=== PATIENT | female | born 1935 | race Caucasian/White ===

== ENCOUNTER 2016-10-23 13:12 | Emergency (ER) | payer MEDICARE, OTHER ==
[~2016-10-23] VITALS: Ht 157.5 cm; Wt 62.1 kg
[~2016-10-23 13:12] MED LIST: ECOT325T5; METO25TA2; MOTR200T4; NITR0.4S; PLAV75TA2; PROZ20CA; TRAM50TA2 OR; TREXIMET; VITAMIN D AND C
[2016-10-23] MEDS ORDERED: PREG25CA (13:22)
[2016-10-23] MEDS ORDERED: MULTCAP11 PO (13:22)
[2016-10-23] MEDS ORDERED: TYLE325T5 PO (13:22)
[2016-10-23] MEDS ORDERED: VITA400C29 PO (13:22)
--- NOTE | 2016-10-23 14:33 | REP ---
Right lower extremity deep vein duplex ultrasound: Comparison is 04/11/2011. The deep veins demonstrate normal compression, normal Doppler color flow and normal Doppler waveforms with respiration and augmentation from the popliteal vein to the common femoral vein. Impression: There is no deep vein thrombus. There is a palpable superficial saphenous vein along the medial aspect of the extremity. Incidentally noted is a right inguinal lymph node. Signed by Bob Euceda MD 10/23/2016 02:25 P
[2016-10-23 15:47] VITALS: BP 138/69
== END 2016-10-23 15:49 | disposition home or self-care (01) ==
LOC: M ED 14:38
DX: I83.91 Asymptomatic varicose veins of right lower extremity (principal); I10 Essential (primary) hypertension; F33.9 Major depressive disorder, recurrent, unspecified; Z86.718 Personal history of other venous thrombosis and embolism; Z79.899 Other long term (current) drug therapy; Z91.040 Latex allergy status; Z88.2 Allergy status to sulfonamides; Z88.5 Allergy status to narcotic agent; Z88.8 Allergy status to other drugs, medicaments and biological substances

== ENCOUNTER → 2016-12-05 | Outpatient (REF) | payer MEDICARE, OTHER ==
[~2016-12-05] MED LIST changes: +MULTCAP11 PO; +PREG25CA; +TYLE325T5 PO; +VITA400C29 PO
== END ==
LOC: M SFHCWAGY 16:45
PROVIDERS: ATTEND Nurse Practitioner Family
DX: N39.3 Stress incontinence (female) (male) (principal)
CPT/HCPCS: 81002; 87086; G0463

== ENCOUNTER → 2016-12-06 | Outpatient (CLI) | payer MEDICARE, OTHER | LOC: M LAB 15:44 | PROVIDERS: ATTEND Dentist Oral and Maxillofacial Surgery | DX: M31.6 Other giant cell arteritis (principal); G50.1 Atypical facial pain ==

== ENCOUNTER → 2017-06-20 | Outpatient (REF) | payer MEDICARE, OTHER ==
[~2017-06-20] MED LIST changes: +VITA-110 PO; -VITA400C29 PO
== END ==
LOC: M LAB REF 14:54
PROVIDERS: ATTEND Radiology Practitioner Assistant
DX: N60.22 Fibroadenosis of left breast (principal)

== ENCOUNTER → 2017-12-22 | Outpatient (REF) | payer MEDICARE, OTHER | LOC: M SFHCLERA 12:25 | DX: R30.0 Dysuria (principal) | CPT/HCPCS: 87186 ==

== ENCOUNTER 2017-12-29 09:54 | Emergency (ER) | payer MEDICARE, OTHER ==
[2017-12-29] MEDS: NS 1,000 ML IV (10:45)
[2017-12-29 11:07] LABS: BASO % 0.7 % (0.0-1.0); EOS # 0.1 10^3/uL (0.0-0.50); HEMATOCRIT 39.8 % (36.0-47.0); HEMOGLOBIN 13.2 g/dl (12.0-15.5); IMMATURE GRANULOCYTE % 0.4 % (0-3.0); LYMPH # 1.8 10^3/uL (1.5-4.5); LYMPH % 31.8 % (24.0-44.0); MEAN CORPUSCULAR HEMOGLOBIN 31.3 pg (27.0-33.0); MEAN CORPUSCULAR HGB CONC 33.2 g/dl (32.0-36.5); MEAN CORPUSCULAR VOLUME 94.3 fl (80.0-96.0); MONO # 0.5 10^3/uL (0.0-0.8); MONO % 9.2 % (0.0-5.0); NEUTROPHILS # 3.1 10^3/uL (1.8-7.7); NEUTROPHILS % 55.9 % (36.0-66.0); PLATELET COUNT, AUTOMATED 277 10^3/uL (150-450); RED BLOOD COUNT 4.22 10^6/uL (4.00-5.40); RED CELL DISTRIBUTION WIDTH 12.8 % (11.5-14.5); WHITE BLOOD COUNT 5.5 10^3/uL (4.0-10.0)
[2017-12-29 11:12] LABS: APPEARANCE, URINE CLEAR (CLEAR); BACTERIA, URINE AUTO 1+ (NEGATIVE); BILIRUBIN, URINE AUTO NEGATIVE (NEGATIVE); BLOOD, URINE BLOOD NEGATIVE (NEGATIVE); COLOR, URINE YELLOW (YELLOW); GLUCOSE, URINE (UA) AUTO NEGATIVE (NEGATIVE); KETONE, URINE AUTO NEGATIVE (NEGATIVE); LEUKOCYTE ESTERASE, URINE AUTO NEGATIVE (NEGATIVE); MUCUS, URINE SMALL (NEGATIVE); NITRITE, URINE AUTO NEGATIVE (NEGATIVE); PROTEIN, URINE AUTO NEGATIVE (NEGATIVE); RBC, URINE AUTO 1 /HPF (0-3); SPECIFIC GRAVITY URINE AUTO 1.011 (1.002-1.035); SQUAMOUS EPITHELIAL CELL UR AU 0 /HPF (0-6); UROBILINOGEN, URINE AUTO 0.2 mg/dL (0.0-2.0); WBC, URINE AUTO 1 /HPF (0-3)
[2017-12-29 11:27] LABS: ALBUMIN 3.9 GM/DL (3.2-5.2); ALBUMIN/GLOBULIN RATIO 0.95 (1.00-1.93); ALKALINE PHOSPHATASE 99 U/L (45-117); ALT/SGPT 19 U/L (12-78); ANION GAP 7 MEQ/L (8-16); AST/SGOT 12 U/L (7-37); BILIRUBIN,DIRECT 0.1 MG/DL (0.0-0.2); BILIRUBIN,TOTAL 0.5 MG/DL (0.2-1.0); BLOOD UREA NITROGEN 15 MG/DL (7-18); CALCIUM LEVEL 8.7 MG/DL (8.8-10.2); CARBON DIOXIDE LEVEL 27 MEQ/L (21-32); CHLORIDE LEVEL 105 MEQ/L (98-107); CREATININE FOR GFR 0.96 MG/DL (0.55-1.30); GLOMERULAR FILTRATION RATE 59.2 (>32); GLUCOSE, FASTING 102 MG/DL (70-100); LIPASE 636 U/L (73-393); POTASSIUM SERUM 3.9 MEQ/L (3.5-5.1); SODIUM LEVEL 139 MEQ/L (136-145)
[2017-12-29] MEDS ORDERED: ISOVUE-370 76% 100ML VIAL (Q9967) As Ordered (11:58)
[2017-12-29] MEDS: LORazepam 2 MG/ML VIAL (J2060) IV (12:27)
[2017-12-29] MEDS: diphenhydrAMINE INJ 50MG/ML VIAL (J1200) IV (13:06)
== END 2017-12-29 14:15 | disposition home or self-care (01) ==
LOC: M ED 09:54
DX: F41.1 Generalized anxiety disorder (principal); R74.8 Abnormal levels of other serum enzymes; R53.83 Other fatigue; R10.9 Unspecified abdominal pain; F32.9 Major depressive disorder, single episode, unspecified; K21.9 Gastro-esophageal reflux disease without esophagitis; Z86.718 Personal history of other venous thrombosis and embolism; Z88.5 Allergy status to narcotic agent; Z88.8 Allergy status to other drugs, medicaments and biological substances; Z88.2 Allergy status to sulfonamides; Z91.040 Latex allergy status; Z79.899 Other long term (current) drug therapy
CPT/HCPCS: J1200

== ENCOUNTER → 2018-05-01 | Outpatient (REF) | payer MEDICARE, OTHER ==
[2018-05-01 15:55] LABS: C REACTIVE PROTEIN QUANTITATIV < 0.30 MG/DL (0.00-0.30)
[2018-05-01 15:55] LABS: RHEUMATOID FACTOR QUANT < 10.0 IU/ML (<15.0)
[2018-05-01 16:06] LABS: ERYTHROCYTE SEDIMENTATION RATE 23 mm/hr (0-30)
[2018-05-03 14:15] LABS: ANTINUCLEAR ANTIBODIES DIRECT Negative (Negative)
== END ==
LOC: M LABDRAW1 12:14
DX: M79.10 Myalgia, unspecified site (principal)
CPT/HCPCS: 86140

== ENCOUNTER → 2018-06-21 | Outpatient (CLI) | payer MEDICARE, OTHER ==
[~2018-06-21] MED LIST changes: +NITR100C2 PO; +PROZ10CA7 PO; +TRIL150T PO
--- NOTE | 2018-06-21 10:22 | REPMRS ---
Patient History The patient states she has not had a clinical breast exam in over a year. Patient is postmenopausal. Family history of unknown cancer in father, unknown cancer in paternal aunt, unknown cancer in paternal aunt. Benign stereotactic core biopsy of the left breast, 2016. Digital Woman Screen Mammo: June 21, 2018 - Exam #: [id number] Bilateral CC and MLO view(s) were taken. Technologist: Emmanuelle Posey, Technologist Prior study comparison: June 13, 2017, bilateral digital woman screen mammo, performed at [facility]. November 06, 2012, digital woman screen mammo performed at [facility]. November 07, 2011, digital woman screen mammo performed at [facility]. FINDINGS: There are scattered fibroglandular densities. There is a needle biopsy marker clip noted in the left breast. There has been no change in the appearance of the mammogram from the prior studies. There is a mild amount of scattered fibroglandular density which is fairly symmetric. There is no interval development of dominant mass, architectural distortion, or clustered microcalcification suggestive of malignancy. Assessment: BI-RADS/ACR category 2 mammogram. Benign finding(s). Recommendation Routine screening mammogram of both breasts in 1 year (for women over age 40). This patient's Lifetime Breast Cancer RIsk is estimated at 0.6 %. This mammogram was interpreted with the aid of an FDA-approved computer-aided dectection system. Electronically Signed By: Amarjit Kahn MD 06/21/18 [id number]
== END ==
LOC: M WHC 07:49
PROVIDERS: ATTEND Internal Medicine
DX: Z12.31 Encounter for screening mammogram for malignant neoplasm of breast (principal); Z78.0 Asymptomatic menopausal state

== ENCOUNTER 2018-11-18 17:02 | Emergency (ER) | payer MEDICARE, OTHER ==
[~2018-11-18] VITALS: Ht 157.5 cm; Wt 60.5 kg
[2018-11-18] MEDS ORDERED: MEMA1TAB PO (17:24)
[2018-11-18 18:25] LABS: BASO % 0.4 % (0.0-1.0); EOS # 0.2 10^3/uL (0.0-0.50); EOS % 2.9 % (0.0-3.0); HEMATOCRIT 35.6 % (36.0-47.0); HEMOGLOBIN 11.5 g/dl (12.0-15.5); LYMPH # 1.9 10^3/uL (1.5-4.5); MEAN CORPUSCULAR HGB CONC 32.3 g/dl (32.0-36.5); MONO # 0.6 10^3/uL (0.0-0.8); MONO % 8.3 % (0.0-5.0); NEUTROPHILS # 4.5 10^3/uL (1.8-7.7); NEUTROPHILS % 62.1 % (36.0-66.0); PLATELET COUNT, AUTOMATED 250 10^3/uL (150-450); RED BLOOD COUNT 3.71 10^6/uL (4.00-5.40); WHITE BLOOD COUNT 7.2 10^3/uL (4.0-10.0)
[2018-11-18 18:35] LABS: INR 1.03; PARTIAL THROMBOPLASTIN TIME 25.8 SECONDS (25.4-37.6); PROTHROMBIN TIME 13.6 SECONDS (12.1-14.4)
[2018-11-18 18:44] LABS: ALBUMIN 3.2 GM/DL (3.2-5.2); ALT/SGPT 22 U/L (12-78); BILIRUBIN,DIRECT < 0.1 MG/DL (0.0-0.2); BILIRUBIN,TOTAL 0.2 MG/DL (0.2-1.0); BLOOD UREA NITROGEN 22 MG/DL (7-18); CALCIUM LEVEL 8.3 MG/DL (8.8-10.2); CARBON DIOXIDE LEVEL 27 MEQ/L (21-32); CHLORIDE LEVEL 107 MEQ/L (98-107); CPK CREATINE PHOSPHOKINASE 118 U/L (26-192); CREATININE FOR GFR 0.95 MG/DL (0.55-1.30); FREE T4 0.74 NG/DL (0.76-1.46); GLOMERULAR FILTRATION RATE 59.8 (>32); GLUCOSE, FASTING 95 MG/DL (70-100); MB/CK RELATIVE INDEX 1.95 (< OR =4); POTASSIUM SERUM 4.2 MEQ/L (3.5-5.1); SODIUM LEVEL 141 MEQ/L (136-145); TOTAL PROTEIN 6.7 GM/DL (6.4-8.2); TROPONIN I < 0.02 NG/ML (< 0.10)
[2018-11-18 19:13] LABS: C REACTIVE PROTEIN QUANTITATIV 0.37 MG/DL (0.00-0.30)
--- NOTE | 2018-11-18 20:01 | REPVR ---
EXAM: CT Head Without Contrast EXAM DATE/TIME: 11/18/2018 7:00 PM CLINICAL HISTORY: 83 years old, female; Pain; Headache TECHNIQUE: Imaging protocol: Axial computed tomography images of the head without contrast. Radiation optimization: All CT scans at this facility use at least one of these dose optimization techniques: automated exposure control; mA and/or kV adjustment per patient size (includes targeted exams where dose is matched to clinical indication); or iterative reconstruction. COMPARISON: CT Head without contrast 12/12/2012 11:31 AM FINDINGS: Brain: No intracranial mass, mass effect or midline shift. No acute intracranial hemorrhage. No CT evidence of acute cortical infarct. Mild decreased attenuation in periventricular/centrum semiovale white matter. Ventricles: Ventricles, cisterns, and sulci are normal in size for age. Bones/joints: No calvarial fracture or destructive process. Sinuses: Imaged paranasal sinuses are clear. Mastoid air cells: Mastoid air cells are normally aerated. Orbits: Imaged orbits are unremarkable. Soft tissues: No focal extracranial soft tissue swelling. IMPRESSION: No acute or concerning focal intracranial abnormality. Electronically signed by: Corey Contreras On 11/18/2018 20:01:09 PM
[2018-11-18 20:19] LABS: ERYTHROCYTE SEDIMENTATION RATE 37 mm/hr (0-30)
[2018-11-18 20:24] VITALS: BP 164/76
--- NOTE | 2018-11-18 21:33 | ECGEPIP ---
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
--- NOTE | 2018-11-19 08:43 | REP ---
CHEST, TWO VIEWS: Two views of the chest are performed. COMPARISON: 03/08/2016. There is no acute infiltrate. The heart is normal in size. Prominent right cardiophrenic fat pad is again noted unchanged. Mediastinal silhouette is unchanged. IMPRESSION: No acute infiltrate. Electronically Signed by Bob Kunz MD 11/19/2018 06:36 P
--- NOTE | 2018-11-19 08:46 | REP ---
LEFT SECOND DIGIT: Four views of the left second digit performed and demonstrate no fracture, dislocation, or intrinsic bone disease. Electronically Signed by Bob Kunz MD 11/19/2018 06:37 P
== END 2018-11-18 21:11 | disposition home or self-care (01) ==
LOC: M ED 17:02
DX: R53.1 Weakness (principal); S60.022A Contusion of left index finger without damage to nail, initial encounter; X58.XXXA Exposure to other specified factors, initial encounter; Y92.89 Other specified places as the place of occurrence of the external cause; I10 Essential (primary) hypertension; Z86.718 Personal history of other venous thrombosis and embolism
CPT/HCPCS: 36415; 70450; 71046; 73140; 80048; 80076; 82550; 82553; 84439; 84443; 84484; 85025; 85610; 85652; 85730; 86140; 93005; 93041; 94760; 99285; G0404; G0463

== ENCOUNTER → 2019-02-20 | Outpatient (REF) | payer MEDICARE, OTHER ==
[~2019-02-20] MED LIST changes: +CIPR-249 PO; +FLUO10CA8 PO; +MEMA1TAB PO; +MEMA1TAB2 PO; +OXCA150T21; +OXCA150T21 PO; +PREG100CA; +ROPI0.5T PO
[2019-02-20 15:01] LABS: FOLATE > 24.0 NG/ML; THYROXINE (T4) 6.3 UG/DL (4.5-12.0); VITAMIN B12 LEVEL 487 PG/ML
[2019-02-20 15:20] LABS: HEMOGLOBIN A1c 5.8 %
[2019-02-25 00:08] LABS: VITAMIN B1 LEVEL WHOLE BLOOD 140.1 nmol/L (66.5-200.0); VITAMIN B6,PYRIDOXAL PHOSPHATE 13.7 ug/L (2.0-32.8); VITAMIN E(ALPHA TOCOPHEROL) 16.1 mg/L (9.0-29.0)
== END ==
LOC: M LABNEURO 11:26
PROVIDERS: ATTEND Psychiatry & Neurology Neurology
DX: G62.9 Polyneuropathy, unspecified (principal); Z79.899 Other long term (current) drug therapy

== ENCOUNTER 2019-02-22 16:41 | Emergency (ER) | payer MEDICARE, OTHER ==
[~2019-02-22] VITALS: Ht 157.5 cm; Wt 59.5 kg
[~2019-02-22 16:41] MED LIST changes: -CIPR-249 PO; -FLUO10CA8 PO; -MEMA1TAB2 PO; -OXCA150T21 PO; -ROPI0.5T PO
[2019-02-22] MEDS ORDERED: OXCA150T21 PO (17:04)
[2019-02-22] MEDS ORDERED: ROPI0.5T PO (17:04)
[2019-02-22] MEDS ORDERED: MEMA1TAB2 PO (17:04)
[2019-02-22] MEDS ORDERED: FLUO10CA8 PO ×2 (17:04)
[2019-02-22 17:37] LABS: BASO % 0.7 % (0.0-1.0); EOS # 0.2 10^3/uL (0.0-0.50); EOS % 4.2 % (0.0-3.0); HEMATOCRIT 36.9 % (36.0-47.0); HEMOGLOBIN 12.2 g/dl (12.0-15.5); LYMPH # 1.9 10^3/uL (1.5-4.5); LYMPH % 34.2 % (24.0-44.0); MEAN CORPUSCULAR HGB CONC 33.1 g/dl (32.0-36.5); MEAN CORPUSCULAR VOLUME 96.9 fl (80.0-96.0); MONO # 0.6 10^3/uL (0.0-0.8); MONO % 10.3 % (0.0-5.0); NEUTROPHILS # 2.8 10^3/uL (1.8-7.7); NEUTROPHILS % 50.4 % (36.0-66.0); PLATELET COUNT, AUTOMATED 262 10^3/uL (150-450); RED BLOOD COUNT 3.81 10^6/uL (4.00-5.40); WHITE BLOOD COUNT 5.5 10^3/uL (4.0-10.0)
[2019-02-22 17:54] LABS: BLOOD UREA NITROGEN 17 MG/DL (7-18); CALCIUM LEVEL 8.7 MG/DL (8.8-10.2); CARBON DIOXIDE LEVEL 28 MEQ/L (21-32); CHLORIDE LEVEL 102 MEQ/L (98-107); CK-MB VALUE MASS 1.4 NG/ML (<3.6); CPK CREATINE PHOSPHOKINASE 83 U/L (26-192); CREATININE FOR GFR 0.88 MG/DL (0.55-1.30); GLOMERULAR FILTRATION RATE > 60.0 (>32); GLUCOSE, FASTING 90 MG/DL (70-100); INR 1.07; MB/CK RELATIVE INDEX 1.69 (< OR =4); POTASSIUM SERUM 3.9 MEQ/L (3.5-5.1); PROTHROMBIN TIME 13.6 SECONDS (11.8-14.0); SODIUM LEVEL 137 MEQ/L (136-145)
[2019-02-22 17:55] LABS: TROPONIN I < 0.02 NG/ML (< 0.10)
[2019-02-22] MEDS ORDERED: ISOVUE-370 76% 100ML VIAL (Q9967) As Ordered ONE (18:13)
[2019-02-22 18:21] LABS: ALBUMIN 3.5 GM/DL (3.2-5.2); ALT/SGPT 17 U/L (12-78); BILIRUBIN,DIRECT 0.1 MG/DL (0.0-0.2); BILIRUBIN,TOTAL 0.4 MG/DL (0.2-1.0)
--- NOTE | 2019-02-22 18:46 | REPVR ---
EXAM: CT Head Without Contrast EXAM DATE/TIME: 02/22/2019 6:01 PM CLINICAL HISTORY: 83 years old, female; Numbness / parasthesia; Additional info: Wkness TECHNIQUE: Imaging protocol: Computed tomography images of the head without contrast. Radiation optimization: All CT scans at this facility use at least one of these dose optimization techniques: automated exposure control; mA and/or kV adjustment per patient size (includes targeted exams where dose is matched to clinical indication); or iterative reconstruction. COMPARISON: CT Head without contrast 01/07/2019 1:13 PM FINDINGS: Brain: There is parenchymal volume loss. White matter changes are demonstrated in the subcortical, centrum semiovale and periventricular white matter consistent with small vessel white matter angiopathic gliosis. Ventricles: Normal. No ventriculomegaly. Bones/joints: Unremarkable. No acute fracture. Sinuses: Visualized sinuses are unremarkable. No fluid levels. Mastoid air cells: Visualized mastoid air cells are well aerated. No mastoid effusion. Soft tissues: Unremarkable. Vasculature: Atherosclerotic changes demonstrated in the right and left intracranial carotid artery. IMPRESSION: 1. There is parenchymal volume loss. White matter changes are demonstrated in the subcortical, centrum semiovale and periventricular white matter consistent with small vessel white matter angiopathic gliosis. 2. Atherosclerotic changes demonstrated in the right and left intracranial carotid artery. Electronically signed by: Hema Alejandra On 02/22/2019 18:45:58 PM
--- NOTE | 2019-02-22 18:51 | REPVR ---
EXAM: CT Angiography Chest With Contrast EXAM DATE/TIME: 02/22/2019 6:03 PM CLINICAL HISTORY: 83 years old, female; Chest pain TECHNIQUE: Imaging protocol: Computed tomographic angiography images of the chest with intravenous contrast using CT angiography protocol. 3D rendering: MIP reconstructed images were created and reviewed. Radiation optimization: All CT scans at this facility use at least one of these dose optimization techniques: automated exposure control; mA and/or kV adjustment per patient size (includes targeted exams where dose is matched to clinical indication); or iterative reconstruction. Contrast material: ISOVUE 370; Contrast volume: 75 ml; Contrast route: IV; COMPARISON: CR Chest, 2 view PA, Lat 01/07/2019 2:32 PM FINDINGS: Pulmonary arteries: Normal. No pulmonary emboli. Aorta: The aorta demonstrates mild atherosclerotic calcification. Lungs: There are bilateral groundglass opacities most likely atelectatic although mosaic perfusion could produce similar findings. Pleural space: Unremarkable. No pneumothorax. No pleural effusion. Heart: Unremarkable. No cardiomegaly. No pericardial effusion. Lymph nodes: Unremarkable. No enlarged lymph nodes. Bones/joints: The spine demonstrates mild degenerative changes. Soft tissues: Unremarkable. IMPRESSION: 1. There are bilateral groundglass opacities most likely atelectatic although mosaic perfusion could produce similar findings. 2. No pulmonary emboli or aortic dissection. Electronically signed by: Hema Alejandra On 02/22/2019 18:50:52 PM
--- NOTE | 2019-02-22 18:57 | REP ---
Portable chest, 06:29 p.m., single AP view with the the patient upright: Comparison is 01/07/2019. The lung lynn are clear. The cardiac size is normal. The ramírez, mediastinum, and skeletal structures are unremarkable. Impression: Negative portable chest. Electronically Signed by Bob Euceda MD 02/22/2019 06:49 P
[2019-02-22 20:45] VITALS: BP 152/66
[2019-02-22] MEDS ORDERED: CIPR-249 PO (20:57)
[2019-02-22] MEDS ORDERED: CIPROFLOXACIN 250 MG TAB PO ONE (21:00)
--- NOTE | 2019-02-22 23:56 | ECGEPIP ---
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
[2019-02-26 00:10] LABS: Lyme Disease IgG/IgM Antibodie <0.91 ISR (0.00-0.90); Lyme Disease IgM Ab Quantitati <0.80 index (0.00-0.79)
== END 2019-02-22 21:23 | disposition home or self-care (01) ==
LOC: M ED 16:41
DX: N39.0 Urinary tract infection, site not specified (principal); I51.7 Cardiomegaly; I10 Essential (primary) hypertension; Z87.448 Personal history of other diseases of urinary system; R51 Headache; K21.9 Gastro-esophageal reflux disease without esophagitis; F32.9 Major depressive disorder, single episode, unspecified; Z86.718 Personal history of other venous thrombosis and embolism; Z79.899 Other long term (current) drug therapy; Z88.2 Allergy status to sulfonamides; Z88.8 Allergy status to other drugs, medicaments and biological substances; Z88.5 Allergy status to narcotic agent; Z91.040 Latex allergy status
CPT/HCPCS: 70450; 71045; 71275; 80048; 80076; 81001; 81002; 82550; 82553; 84484; 85025; 85610; 85730; 86617; 86850; 86900; 86901; 87086; 87880; 93005; 93041; 94760; 99285; G0463; Q9967

== ENCOUNTER 2021-04-02 10:23 | Observation (INO) | payer MEDICARE, OTHER ==
[~2021-04-02] VITALS: Ht 157.5 cm; Wt 55.3 kg
[~2021-04-02 10:23] MED LIST changes: +CIPR-249 PO; +FLUO10CA16 PO; +MEMA10TA19 PO; -MEMA1TAB PO; +MEMA1TAB3 PO; -OXCA150T21; +OXCA150T21 PO; -PREG100CA; +PREG100CA PO; +ROPI0.5T3 PO
[2021-04-02] MEDS ORDERED: FAMO1TAB11 PO (11:52)
[2021-04-02] MEDS ORDERED: ONDANSETRON 4MG/2ML VIAL IV ONE (12:10)
--- NOTE | 2021-04-02 12:27 | REP ---
INDICATION: nausea vomiting. COMPARISON: Comparison chest x-ray February 22, 2019. TECHNIQUE: Sitting AP portable chest x-ray. FINDINGS: EKG monitoring electrodes are seen. There is mild to moderate cardiac enlargement. There is evidence of a moderate hiatal hernia. The thoracic aorta is tortuous. Pleural angles are sharp. Interstitial markings are prominent in the bases, particularly on the left. Remaining lung lynn are clear. Pulmonary vasculature is not increased. No acute bony abnormality. IMPRESSION: Subtle bibasilar interstitial infiltrates. Cardiomegaly. <Electronically signed by Amarjit Kahn > 04/02/21 [id number]
[2021-04-02 12:30] LABS: BASO % 0.3 % (0.0-1.0); EOS # 0.1 10^3/uL (0.0-0.5); EOS % 0.4 % (0.0-3.0); HEMOGLOBIN 12.5 g/dl (12.0-15.5); LYMPH # 1.3 10^3/uL (1.5-5.0); LYMPH % 11.5 % (24.0-44.0); MEAN CORPUSCULAR HEMOGLOBIN 30.7 pg (27.0-33.0); MEAN CORPUSCULAR HGB CONC 32.1 g/dl (32.0-36.5); MEAN CORPUSCULAR VOLUME 95.8 fl (80.0-96.0); MONO # 0.6 10^3/uL (0.0-0.8); MONO % 5.7 % (2.0-8.0); NEUTROPHILS # 9.2 10^3/uL (1.5-8.5); NEUTROPHILS % 81.6 % (36.0-66.0); PLATELET COUNT, AUTOMATED 311 10^3/uL (150-450); RED BLOOD COUNT 4.07 10^6/uL (4.00-5.40); WHITE BLOOD COUNT 11.3 10^3/uL (4.0-10.0)
[2021-04-02 13:05] LABS: CALCIUM LEVEL 9.2 MG/DL (8.8-10.2); CREATININE FOR GFR 1.44 MG/DL (0.55-1.30); GLOMERULAR FILTRATION RATE 36.8 (>32); POTASSIUM SERUM 4.3 MEQ/L (3.5-5.1)
--- NOTE | 2021-04-02 13:15 | REP ---
INDICATION: left flank pain. COMPARISON: 12/29/2017 a contrast-enhanced exam TECHNIQUE: Standard helical technique without intravenous or oral bowel preparatory contrast. Stone protocol utilized to left flank pain. FINDINGS: Respiratory motion artifact obscures the lung bases. There are no pleural or pericardial effusions. There is moderate left-sided hydronephrosis and hydroureter with perinephric and Tiffani ureteral stranding. In the region of the left ureterovesical junction there is a 5 mm size calcification causing the aforementioned findings. There is a hiatal hernia status quo. The liver, spleen, pancreas, and adrenal glands are seen in limited fashion but essentially unchanged from the prior exam. There is a 3 mm size nonobstructing right nephrolith representing a change from the prior exam. There is calcific atherosclerotic change in the abdominal aorta. There are no other gross abnormalities. There is no evidence of free fluid or free air. There is no significant change in appearance of the bowel loops or the mesenteries. There is sigmoid colon diverticulosis. Bone window technique throughout the exam shows no evidence of an acute osseous abnormality. IMPRESSION: Left-sided obstructive uropathy secondary to a 5 mm sized calculus in the ureterovesical junction as described above. <Electronically signed by Nelson Dela Cruz > 04/02/21 [id number]
[2021-04-02] MEDS ORDERED: TAMSULOSIN 0.4 MG CAP PO ONE (13:20)
[2021-04-02] MEDS ORDERED: KETOROLAC 30 MG/ML 1ML VIAL IV ONE (13:20)
[2021-04-02] MEDS ORDERED: [UNRECOGNIZED DRUG - OTHER] PO (14:55)
[2021-04-02] MEDS ORDERED: ACET325C5 PO (14:55)
[2021-04-02] MEDS ORDERED: VITMTA PO (14:55)
[2021-04-02] MEDS ORDERED: CHOL50002 PO (14:55)
[2021-04-02] MEDS ORDERED: HOME MED LIST COMPLETE! XX SCH (15:00)
--- NOTE | 2021-04-02 15:38 | HPEPDOC ---
[facility] Medical History & Physical Date of Admission Apr 02, 2021 Date of Service: Apr 02, 2021 History and Physical CHIEF COMPLAINT: Right back pain HISTORY OF PRESENT ILLNESS: 85-year-old female with a past medical history of Alzheimer's disease and migraines presented to the emergency room department with with complaints of back pain. Due to her Alzheimer's disease underlying dementia she was unable to contribute to HPI. Her was present at bedside provided most of the history for her. As per the , patient had discomfort and pain for the last 3 to 4 days over the right flank region radiating to her abdomen with associated nausea. She had an episode of emesis in the emergency room department. He also felt that she was not urinating as well as her baseline. Therefore made a telehealth appointment and once the symptoms were described he was instructed to go to emergency room department for further evaluation of the kidneys. In the ED a CT scan was done of the abdomen which noted a UVJ stone of 5 mm. PAST MEDICAL HISTORY: As mentioned above PAST SURGICAL HISTORY: 1. Hysterectomy 2. Cholecystectomy 3. describes she had glands removed in her neck SOCIAL HISTORY: Lives with her . Denies smoking, drinking, use of recreational drugs FAMILY HISTORY: Noncontributory ALLERGIES: Please see below. REVIEW OF SYSTEMS: 10 point review of system was negative except for what is noted in the HPI HOME MEDICATIONS: Please see below. PHYSICAL EXAMINATION: VITAL SIGNS: Please see below General: Lying in bed, no acute distress Head/Neck/Throat: Trachea midline, mucous membranes moist Eyes: Sclera anicteric, no erythema or discharge appreciated bilaterally Thorax: Normal respiratory effort on room air, lungs clear to auscultation bilaterally, no wheezes/rales/rhonchi Cardiovascular: Normal rate, regular rhythm, normal S1, S2; no S3, S4, rubs/gallops/murmurs Abdomen: Bowel sounds present, soft/nontender/nondistended Genitourinary: No CVA tenderness, no Eason in place Musculoskeletal: Right CVA tenderness Skin: Warm, dry Neurologic: Awake, alert, oriented to self. She is able to follow commands but has poor lack of recollection of recent course of events. She thought she was also at home. LABORATORY DATA: See below. IMAGING: CT ABD & PELVIS W/O CONTRAST FINDINGS: Respiratory motion artifact obscures the lung bases. There are no pleural or pericardial effusions. There is moderate left-sided hydronephrosis and hydroureter with perinephric and Tiffani ureteral stranding. In the region of the left ureterovesical junction there is a 5 mm size calcification causing the aforementioned findings. There is a hiatal hernia status quo. The liver, spleen, pancreas, and adrenal glands are seen in limited fashion but essentially unchanged from the prior exam. There is a 3 mm size nonobstructing right nephrolith representing a change from the prior exam. There is calcific atherosclerotic change in the abdominal aorta. There are no other gross abnormalities. There is no evidence of free fluid or free air. There is no significant change in appearance of the bowel loops or the mesenteries. There is sigmoid colon diverticulosis. Bone window technique throughout the exam shows no evidence of an acute osseous abnormality. IMPRESSION: Left-sided obstructive uropathy secondary to a 5 mm sized calculus in the ureterovesical junction as described above. CXR FINDINGS: EKG monitoring electrodes are seen. There is mild to moderate cardiac enlargement. There is evidence of a moderate hiatal hernia. The thoracic aorta is tortuous. Pleural angles are sharp. Interstitial markings are prominent in the bases, particularly on the left. Remaining lung lynn are clear. Pulmonary vasculature is not increased. No acute bony abnormality. IMPRESSION: Subtle bibasilar interstitial infiltrates. Cardiomegaly. MICROBIOLOGY: Please see below. ASSESSMENT/PLAN: #Nephrolithiasis -C5 mm sized calculus in the ureterovesical junction. Continue with IV fluids and tamsulosin. -Strain urine for stone to be collected for pathology. -Avoid nephrotoxic pain medications including Toradol. #UTI -Prerenal azotemia in setting of nephrolithiasis and poor p.o. intake. -Continue with IV fluids. #Alzheimer's disease -Continue with memantine #Migraines -Continue with Lyrica. #GERD -c/w famotidine #DVT prophylaxis -Heparin subcu Vital Signs Vital Signs Date Time Temp Pulse Resp B/P (MAP) Pulse Ox O2 Delivery O2 Flow Rate FiO2 04/02/21 13:10 18 199/88 (125) 04/02/21 13:08 64 04/02/21 12:38 97 04/02/21 12:10 99.0 04/02/21 11:53 Room Air Laboratory Data Labs 24H Laboratory Tests 2 04/02/21 12:11: Immature Granulocyte % (Auto) 0.5, Neutrophils (%) (Auto) 81.6H, Lymphocytes (%) (Auto) 11.5L, Monocytes (%) (Auto) 5.7, Eosinophils (%) (Auto) 0.4, Basophils (%) (Auto) 0.3, Neutrophils # (Auto) 9.2H, Lymphocytes # (Auto) 1.3L, Monocytes # (Auto) 0.6, Eosinophils # (Auto) 0.1, Basophils # (Auto) 0.0, Nucleated Red Blood Cells % (auto) 0.0, Anion Gap 9, Glomerular Filtration Rate 36.8, Calcium Level 9.2 04/02/21 12:22: POC Troponin I (Misc) 0.01 04/02/21 12:56: Urine Color YELLOW, Urine Appearance CLEAR, Urine pH 6.0, Urine Specific [place] 1.017, Urine Protein NEGATIVE, Urine Glucose (UA) NEGATIVE, Urine Ketones TRACEH, Urine Blood NEGATIVE, Urine Nitrite NEGATIVE, Urine Bilirubin NEGATIVE, Urine Urobilinogen 0.2, Urine Leukocyte Esterase NEGATIVE, Urine WBC (Auto) 0, Urine RBC (Auto) 0, Urine Hyaline Casts (Auto) 0, Urine Bacteria (Auto) NEGATIVE, Urine Squamous Epithelial Cells 0, Urine Sperm (Auto) 04/02/21 14:49: CBC/BMP Laboratory Tests 04/02/21 12:11 Home Medications Scheduled Cholecalciferol (Vitamin D3) (Vitamin D3) 125 Mcg Capsule, 125 MCG PO DAILY Cyanocobalamin (Vitamin B-12) (Vitamin B-12) 2,000 Mcg Tablet.er, 2,000 MCG PO DAILY Famotidine (Famotidine) 20 Mg Tablet, 20 MG PO BID Fluoxetine Hcl (Fluoxetine HCl) 10 Mg Capsule, 10 MG PO BID Memantine HCl (Memantine HCl) 10 Mg Tablet, 10 MG PO BID Multivitamins (Thera M Plus Tablet) 1 Each Tablet, 1 TAB PO DAILY Oxcarbazepine (Oxcarbazepine) 150 Mg Tablet, 150 MG PO BID Pregabalin (Lyrica) 100 Mg Capsule, 100 MG PO BID Tamsulosin HCl (Flomax) 0.4 Mg Capsule, 0.4 MG PO DAILY Scheduled PRN Acetaminophen (Tylenol) 325 Mg Capsule, 325 MG PO for PAIN LEVEL 1-4 Ondansetron HCl (Zofran) 4 Mg Tablet, 4 MG PO Q6-8HP PRN for nausea/vomiting Allergies Coded Allergies: Sulfa (Sulfonamide Antibiotics) (Verified Allergy, Unknown, 01/07/19) lansoprazole (Verified Allergy, Unknown, 01/07/19) latex (Verified Allergy, Unknown, 01/07/19) aspirin (Verified Adverse Reaction, Unknown, weak, 02/22/19) codeine (Verified Adverse Reaction, Unknown, 01/07/19) weak A-FIB/CHADSVASC A-FIB History Current/History of A-Fib/PAF?: No ZAC REDDING M.D. Apr 02, 2021 15:38
[2021-04-02] MEDS ORDERED: MORPHINE 2 MG/ML 1ML VIAL (J2270) IV PRN (15:40)
[2021-04-02] MEDS ORDERED: ACETAMINOPHEN TAB 650MG DOSE (2X325MG) PO PRN (15:40)
[2021-04-02 15:58] LABS: RSV AMPLIFICATION NEGATIVE (NEGATIVE)
--- NOTE | 2021-04-02 16:15 | SMCUROLCON ---
Urology Consultation General Date of Consultation 04/02/21 Reason For Consultation left ureteral stone History of Present Illness 85yo wf presented with several days of back pain. Nausea. Ct done - 5mm uvj stone causing obstruction, 3mm right renal stone. Pt with dementia. Information from and chart. Past Medical History Medical History dementia migraines Surgical Hstory hysterectomy cholecystectomy Family History Significant Family History: No pertinent family hx Social History * Smoker: non-smoker Alcohol: Denies Drugs: denies Medications Current Medications Current Medications Medications (Trade) Dose Ordered Sig/Sander Route PRN Reason Start Time Stop Time Status Last Admin Dose Admin Acetaminophen (Tylenol Tab) 500 mg Q6H PRN PO PAIN LEVEL 1-6 04/02/21 15:40 Famotidine (Pepcid) 20 mg BID PO 04/02/21 21:00 Fluoxetine HCl (PROzac) 10 mg BID PO 04/02/21 21:00 Heparin Sodium (Porcine) (Heparin) 5,000 units Q8H SC 04/02/21 22:00 Home Med (Home Med List Complete!) ASDIRECTED XX 04/02/21 15:00 04/02/21 15:07 DC Memantine (Namenda) 10 mg QAM PO 04/03/21 09:00 Morphine Sulfate (Morphine Sulfate Inj) 2 mg Q6HP PRN IV PAIN LEVEL 7-10 04/02/21 15:40 Multivitamins (Theragram-M) 1 tab DAILY PO 04/03/21 09:00 Oxcarbazepine (Trileptal) 150 mg BID PO 04/02/21 21:00 Pregabalin (Lyrica) 100 mg BID PO 04/02/21 21:00 Sodium Chloride 1,000 ml @ 75 mls/hr [id number] IV 04/02/21 15:40 Tamsulosin HCl (Flomax) 0.4 mg DAILY PO 04/03/21 09:00 Allergies Allergies: Coded Allergies: Sulfa (Sulfonamide Antibiotics) (Verified Allergy, Unknown, 01/07/19) lansoprazole (Verified Allergy, Unknown, 01/07/19) latex (Verified Allergy, Unknown, 01/07/19) aspirin (Verified Adverse Reaction, Unknown, weak, 02/22/19) codeine (Verified Adverse Reaction, Unknown, 01/07/19) weak Review of Systems General: Denies: Night Sweats Constitutional: Denies: Fever Eyes: Denies: Pain ENT: Denies: Sinus Congestion Skin: Denies: Lesions Pulmonary: Denies: Cough Gastrointestinal: Reports: Nausea Genitourinary: Denies: Dysuria Hematologic: Denies: Bruising Endocrine: Denies: Polydipsia Musculoskeletal: Reports: Back Pain Neurological: Denies: Weakness Psych: Reports: Other Psych (no acute changes) Physical Examination General Exam: Alert, Cooperative, Other (dementia, appears comfortable) EYE EXAM: Conjunctiva & lids normal ENT EXAM: Mucous membr. moist/pink Neck Exam: Supple Chest Exam: Clear to auscultation Heart Exam: Rate Normal Abdomen Exam: Soft; No: Tenderness Extremity Exam: No: Cyanosis Skin Exam: Nl turgor and temperature Neuro Exam: Normal Speech Psych Exam: Other (dementia) Vital Signs/I&O Vital Signs Date Time Temp Pulse Resp B/P (MAP) Pulse Ox O2 Delivery O2 Flow Rate FiO2 04/02/21 13:10 18 199/88 (125) 04/02/21 13:08 64 04/02/21 12:38 97 04/02/21 12:10 99.0 04/02/21 11:53 Room Air Laboratory Data 24H Labs Laboratory Tests 2 04/02/21 12:11: Immature Granulocyte % (Auto) 0.5, Neutrophils (%) (Auto) 81.6H, Lymphocytes (%) (Auto) 11.5L, Monocytes (%) (Auto) 5.7, Eosinophils (%) (Auto) 0.4, Basophils (%) (Auto) 0.3, Neutrophils # (Auto) 9.2H, Lymphocytes # (Auto) 1.3L, Monocytes # (Auto) 0.6, Eosinophils # (Auto) 0.1, Basophils # (Auto) 0.0, Nucleated Red Blood Cells % (auto) 0.0, Anion Gap 9, Glomerular Filtration Rate 36.8, Calcium Level 9.2 04/02/21 12:22: POC Troponin I (Misc) 0.01 04/02/21 12:56: Urine Color YELLOW, Urine Appearance CLEAR, Urine pH 6.0, Urine Specific [place] 1.017, Urine Protein NEGATIVE, Urine Glucose (UA) NEGATIVE, Urine Ketones TRACEH, Urine Blood NEGATIVE, Urine Nitrite NEGATIVE, Urine Bilirubin NEGATIVE, Urine Urobilinogen 0.2, Urine Leukocyte Esterase NEGATIVE, Urine WBC (Auto) 0, Urine RBC (Auto) 0, Urine Hyaline Casts (Auto) 0, Urine Bacteria (Auto) NEGATIVE, Urine Squamous Epithelial Cells 0, Urine Sperm (Auto) 04/02/21 14:49: Coronavirus (COVID-19)(PCR) NEGATIVE, Influenza Type A (RT-PCR) NEGATIVE, Influenza Type B (RT-PCR) NEGATIVE, Respiratory Syncytial Virus (PCR) NEGATIVE CBC/BMP Laboratory Tests 04/02/21 12:11 Assessment 5mm left ureteral stone at uvj creatinine up to 1.44 wbc up to 11.3 no urgent need for intervention stone at uvj will likely pass ivf, pain control... will see pt Plan see above IMAN HICKEY MD Apr 02, 2021 16:15
[2021-04-02 18:45] VITALS: BP 121/60
--- NOTE | 2021-04-02 20:02 | ECGEPIP ---
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
[2021-04-02] MEDS: MEMANTINE 5MG TABLET (NAMENDA) PO SCH (21:00)
[2021-04-02] MEDS: PREGABALIN 100 MG CAP (LYRICA) PO SCH (21:17)
[2021-04-02] MEDS: NS 1,000 ML IV SCH (21:17)
[2021-04-02] MEDS: FAMOTIDINE 20 MG TAB PO SCH (21:17)
[2021-04-02] MEDS: FLUoxetine 10 MG CAP PO SCH (21:17)
[2021-04-02] MEDS: OXcarbazepine 150 MG TAB PO SCH (21:17)
[2021-04-02] MEDS: HEPARIN SOD (PORCINE) 5000UNITS/ML 1ML VIAL/SYRINGE SC SCH (21:18)
[2021-04-02 22:00] VITALS: BP 118/59
[2021-04-03] MEDS: HEPARIN SOD (PORCINE) 5000UNITS/ML 1ML VIAL/SYRINGE SC SCH ×3 (05:28→22:01)
[2021-04-03 06:00] VITALS: BP 120/56
[2021-04-03 06:55] LABS: HEMATOCRIT 29.1 % (36.0-47.0); MEAN CORPUSCULAR HEMOGLOBIN 31.2 pg (27.0-33.0); MEAN CORPUSCULAR HGB CONC 32.3 g/dl (32.0-36.5); MEAN CORPUSCULAR VOLUME 96.7 fl (80.0-96.0); PLATELET COUNT, AUTOMATED 214 10^3/uL (150-450); RED BLOOD COUNT 3.01 10^6/uL (4.00-5.40); WHITE BLOOD COUNT 5.4 10^3/uL (4.0-10.0)
[2021-04-03 06:59] LABS: HEMOGLOBIN 9.4 g/dl (12.0-15.5)
[2021-04-03 07:07] LABS: CREATININE FOR GFR 1.45 MG/DL (0.55-1.30); GLOMERULAR FILTRATION RATE 36.5 (>32); POTASSIUM SERUM 4.4 MEQ/L (3.5-5.1)
[2021-04-03 07:08] LABS: MAGNESIUM LEVEL 1.9 MG/DL (1.8-2.4); PHOSPHORUS LEVEL 2.9 MG/DL (2.5-4.9)
[2021-04-03] MEDS ORDERED: MEMANTINE 5MG TABLET (NAMENDA) PO SCH (09:00)
[2021-04-03] MEDS: MULTIVITAMINS/MINERALS THERAP 1 TAB PO SCH (09:59)
[2021-04-03] MEDS: FLUoxetine 10 MG CAP PO SCH ×2 (09:59→21:31)
[2021-04-03] MEDS: PREGABALIN 100 MG CAP (LYRICA) PO SCH ×2 (10:00→21:31)
[2021-04-03] MEDS: OXcarbazepine 150 MG TAB PO SCH ×2 (10:00→21:31)
[2021-04-03] MEDS: FAMOTIDINE 20 MG TAB PO SCH ×2 (10:00→21:31)
[2021-04-03] MEDS: NS 1,000 ML IV SCH (10:00)
[2021-04-03] MEDS: MEMANTINE 5MG TABLET (NAMENDA) PO SCH ×2 (10:00→21:31)
[2021-04-03] MEDS: TAMSULOSIN 0.4 MG CAP PO SCH (10:00)
--- NOTE | 2021-04-03 12:30 | IPNPDOC ---
Date Seen The patient was seen on 04/03/21. Progress Note pt seen today sitting in chair and in no acute distress doesn't look to be in pain avss wbc down to about [address] reviewed - stone at left uvj 5mm and smaller stone in right kidney no gu intervention planned should pass stone continue tamsulosin I ordered kub if pt continues to be comfortable, discharge is fine by me usual conservative measures for stone check creatinine before discharge thank you [phone] VS, I&O, 24H, Roxanna Vital Signs/I&O Vital Signs Date Time Temp Pulse Resp B/P (MAP) Pulse Ox O2 Delivery O2 Flow Rate FiO2 04/03/21 06:00 97.5 65 18 120/56 (77) 96 Room Air I&O- Last 24 Hours up to 6 AM 04/03/21 06:00 Intake Total 350 ml Output Total 100 ml Balance 250 ml Laboratory Data 24H LABS Laboratory Tests 2 04/02/21 12:56: Urine Color YELLOW, Urine Appearance CLEAR, Urine pH 6.0, Urine Specific [place] 1.017, Urine Protein NEGATIVE, Urine Glucose (UA) NEGATIVE, Urine Ketones TRACEH, Urine Blood NEGATIVE, Urine Nitrite NEGATIVE, Urine Bilirubin NEGATIVE, Urine Urobilinogen 0.2, Urine Leukocyte Esterase NEGATIVE, Urine WBC (Auto) 0, Urine RBC (Auto) 0, Urine Hyaline Casts (Auto) 0, Urine Bacteria (Auto) NEGATIVE, Urine Squamous Epithelial Cells 0, Urine Sperm (Auto) 04/02/21 14:49: Coronavirus (COVID-19)(PCR) NEGATIVE, Influenza Type A (RT-PCR) NEGATIVE, Influenza Type B (RT-PCR) NEGATIVE, Respiratory Syncytial Virus (PCR) NEGATIVE 04/03/21 05:26: Nucleated Red Blood Cells % (auto) 0.0, Anion Gap 7L, Glomerular Filtration Rate 36.5, Calcium Level 8.0L, Phosphorus Level 2.9, Magnesium Level 1.9 CBC/BMP Laboratory Tests 04/03/21 05:26 IMAN HICKEY MD Apr 03, 2021 12:30
[2021-04-03 14:00] VITALS: BP 142/67
--- NOTE | 2021-04-03 14:10 | IPNPDOC ---
Subjective Date Seen The patient was seen on 04/03/21. Subjective Chief Complaint/HPI Patient was seen and examined at bedside this morning. She was accompanied by her . Due to her underlying dementia it is difficult to obtain review of systems as her speech at times is tangible. She did state that there was improvement in her pain, and the reported she did not complain of pain today. She denies chest pain, palpitations, abdominal pain, nausea, vomiting, problem with urination and bowel movements. Objective Physical Examination Other physical findings General: Lying in bed, no acute distress Head/Neck/Throat: Trachea midline, mucous membranes moist Eyes: Sclera anicteric, no erythema or discharge appreciated bilaterally Thorax: Normal respiratory effort on room air, lungs clear to auscultation bilaterally, no wheezes/rales/rhonchi Cardiovascular: Normal rate, regular rhythm, normal S1, S2; no S3, S4, rubs/gallops/murmurs Abdomen: Bowel sounds present, soft/nontender/nondistended Genitourinary: No CVA tenderness, no Eason in place Musculoskeletal: Right CVA tenderness Assessment /Plan Assessment #Nephrolithiasis -C5 mm sized calculus in the ureterovesical junction. Continue with IV fluids and tamsulosin. -Continue to strain urine for stone to be collected for pathology. -Avoid nephrotoxic pain medications including Toradol. #UTI -Prerenal azotemia in setting of nephrolithiasis and poor p.o. intake. -Continue with IV fluids. #Alzheimer's disease -Continue with memantine #Migraines -Continue with Lyrica. #GERD -c/w famotidine #DVT prophylaxis -Heparin subcu Plan/VTE VTE Prophylaxis Ordered?: Yes VS, I&O, 24H, Roxanna Vital Signs/I&O Vital Signs Date Time Temp Pulse Resp B/P (MAP) Pulse Ox O2 Delivery O2 Flow Rate FiO2 04/03/21 06:00 97.5 65 18 120/56 (77) 96 Room Air I&O- Last 24 Hours up to 6 AM 04/03/21 05:59 Intake Total 350 ml Output Total 100 ml Balance 250 ml Laboratory Data 24H LABS Laboratory Tests 2 04/02/21 14:49: Coronavirus (COVID-19)(PCR) NEGATIVE, Influenza Type A (RT-PCR) NEGATIVE, Influenza Type B (RT-PCR) NEGATIVE, Respiratory Syncytial Virus (PCR) NEGATIVE 04/03/21 05:26: Nucleated Red Blood Cells % (auto) 0.0, Anion Gap 7L, Glomerular Filtration Rate 36.5, Calcium Level 8.0L, Phosphorus Level 2.9, Magnesium Level 1.9 CBC/BMP Laboratory Tests 04/03/21 05:26 ZAC REDDING M.D. Apr 03, 2021 14:10
--- NOTE | 2021-04-03 14:18 | REP ---
INDICATION: left ureteral stone. COMPARISON: Ureteral stone again seen TECHNIQUE: Supine film of the abdomen. Single KUB. FINDINGS: Bowel gas pattern is normal. There are clips in right upper quadrant and there is a surgical clip in the left pelvis. Psoas margins and flank stripes are intact. No mass or organomegaly is seen. No upper tract urinary calculus is seen. There is a calcific density just above the left superior pubic ramus which in correlation with the CT study is believed to represent the distal ureteral calculus seen on yesterday's CT. This measures 5 mm. No other urinary tract calcification is appreciated. IMPRESSION: Findings consistent with left distal ureteral stone. <Electronically signed by Amarjit Kahn > 04/03/21 [id number]
[2021-04-03 22:00] VITALS: BP 132/73
[2021-04-04] MEDS: NS 1,000 ML IV SCH (02:00)
[2021-04-04] MEDS: HEPARIN SOD (PORCINE) 5000UNITS/ML 1ML VIAL/SYRINGE SC SCH (05:03)
[2021-04-04 06:00] VITALS: BP 137/70
[2021-04-04 06:17] LABS: HEMATOCRIT 30.3 % (36.0-47.0); HEMOGLOBIN 9.6 g/dl (12.0-15.5); MEAN CORPUSCULAR HEMOGLOBIN 30.6 pg (27.0-33.0); MEAN CORPUSCULAR HGB CONC 31.7 g/dl (32.0-36.5); MEAN CORPUSCULAR VOLUME 96.5 fl (80.0-96.0); PLATELET COUNT, AUTOMATED 223 10^3/uL (150-450); RED BLOOD COUNT 3.14 10^6/uL (4.00-5.40); WHITE BLOOD COUNT 3.9 10^3/uL (4.0-10.0)
[2021-04-04 06:38] LABS: CALCIUM LEVEL 8.3 MG/DL (8.8-10.2); CREATININE FOR GFR 1.11 MG/DL (0.55-1.30); GLOMERULAR FILTRATION RATE 49.7 (>32); MAGNESIUM LEVEL 2.1 MG/DL (1.8-2.4); PHOSPHORUS LEVEL 3.1 MG/DL (2.5-4.9); POTASSIUM SERUM 4.5 MEQ/L (3.5-5.1)
[2021-04-04] MEDS: MULTIVITAMINS/MINERALS THERAP 1 TAB PO SCH (09:34)
[2021-04-04] MEDS: OXcarbazepine 150 MG TAB PO SCH (09:34)
[2021-04-04] MEDS: PREGABALIN 100 MG CAP (LYRICA) PO SCH (09:34)
[2021-04-04] MEDS: TAMSULOSIN 0.4 MG CAP PO SCH (09:34)
[2021-04-04] MEDS: FAMOTIDINE 20 MG TAB PO SCH (09:34)
[2021-04-04] MEDS: FLUoxetine 10 MG CAP PO SCH (09:35)
[2021-04-04] MEDS: MEMANTINE 5MG TABLET (NAMENDA) PO SCH (09:35)
[2021-04-04] MEDS ORDERED: FLOM0.4C39 PO (13:08)
--- NOTE | 2021-04-04 13:14 | DS.PDOC ---
Discharge Summary General Date of Admission Apr 02, 2021 at 10:24 Discharge Summary PROCEDURES PERFORMED DURING STAY: [None]. ADMITTING DIAGNOSES: 1. . DISCHARGE DIAGNOSES: 1. . COMPLICATIONS/CHIEF COMPLAINT: Ureterolithiasis. HISTORY OF PRESENT ILLNESS: . HOSPITAL COURSE: . DISCHARGE MEDICATIONS: Please see below. ALLERGIES: Please see below. PHYSICAL EXAMINATION ON DISCHARGE: VITAL SIGNS: Please see below. GENERAL: HEENT: NECK: CARDIOVASCULAR EXAMINATION: RESPIRATORY EXAMINATION: ABDOMINAL EXAMINATION: EXTREMITIES: SKIN: NEUROLOGICAL EXAMINATION: PSYCHIATRIC EXAMINATION: LABORATORY DATA: Please see below. IMAGING: PROGNOSIS: ACTIVITY: [As tolerated]. DIET: DISCHARGE PLAN: DISPOSITION: . DISCHARGE INSTRUCTIONS: 1. . ITEMS TO FOLLOWUP ON ON OUTPATIENT: 1. . DISCHARGE CONDITION: [Stable]. TIME SPENT ON DISCHARGE: minutes. Vital Signs/I&Os Vital Signs Date Time Temp Pulse Resp B/P (MAP) Pulse Ox O2 Delivery O2 Flow Rate FiO2 04/04/21 06:00 97.9 78 18 137/70 (92) 95 Room Air I&O- Last 24 Hours up to 6 AM 04/04/21 06:00 Intake Total 1590 ml Output Total 575 ml Balance 1015 ml Laboratory Data Labs 24H Laboratory Tests 2 04/04/21 05:28: Anion Gap 8, Glomerular Filtration Rate 49.7, Calcium Level 8.3L, Phosphorus Level 3.1, Magnesium Level 2.1 04/04/21 05:29: Nucleated Red Blood Cells % (auto) 0.0 CBC/BMP Laboratory Tests 04/04/21 05:28 04/04/21 05:29 Discharge Medications Scheduled Cholecalciferol (Vitamin D3) (Vitamin D3) 125 Mcg Capsule, 125 MCG PO DAILY, (Reported) Cyanocobalamin (Vitamin B-12) (Vitamin B-12) 2,000 Mcg Tablet.er, 2,000 MCG PO DAILY, (Reported) Famotidine (Famotidine) 20 Mg Tablet, 20 MG PO BID, (Reported) Fluoxetine Hcl (Fluoxetine HCl) 10 Mg Capsule, 10 MG PO BID, (Reported) Memantine HCl (Memantine HCl) 10 Mg Tablet, 10 MG PO BID, (Reported) Multivitamins (Thera M Plus Tablet) 1 Each Tablet, 1 TAB PO DAILY, (Reported) Oxcarbazepine (Oxcarbazepine) 150 Mg Tablet, 150 MG PO BID, (Reported) Pregabalin (Lyrica) 100 Mg Capsule, 100 MG PO BID, (Reported) Tamsulosin HCl (Flomax) 0.4 Mg Capsule, 0.4 MG PO DAILY Scheduled PRN Acetaminophen (Tylenol) 325 Mg Capsule, 325 MG PO for PAIN LEVEL 1-4, (Reported) Ondansetron HCl (Zofran) 4 Mg Tablet, 4 MG PO Q6-8HP PRN for nausea/vomiting Allergies Coded Allergies: Sulfa (Sulfonamide Antibiotics) (Verified Allergy, Unknown, 01/07/19) lansoprazole (Verified Allergy, Unknown, 01/07/19) latex (Verified Allergy, Unknown, 01/07/19) aspirin (Verified Adverse Reaction, Unknown, weak, 02/22/19) codeine (Verified Adverse Reaction, Unknown, 01/07/19) ZAC Yadav M.D. Apr 04, 2021 13:14
[2021-04-04] MEDS ORDERED: ZOFR4TAB16 PO (13:47)
--- NOTE | 2021-04-04 13:49 | DS.PDOC ---
Discharge Summary General Date of Admission Apr 02, 2021 at 10:24 Date of Discharge 04/04/21 Discharge Summary DISCHARGE DIAGNOSES: 1. Urolithiasis 2. Acute kidney injury COMPLICATIONS/CHIEF COMPLAINT: Ureterolithiasis. HOSPITAL COURSE: Ms. Espinoza, is a 85-year-old female with a past medical history of Alzheimer's disease and migraines who presented to the emergency room department with complaints of back pain and poor oral intake. She is accompanied by her who helped with obtaining history and physical examination due to her underlying dementia. A CT scan of the abdomen pelvis was done that noted left-sided obstructive uropathy secondary to a 5 mm size calculus in the ureterovesical junction. She was started on IV fluids as well as tamsulosin. She was also noted to have acute kidney injury. She was evaluated by the urology team and no acute interventions were planned. She had significant improvement in her back pain as well as resolution of her acute kidney injury. After talking to urology team, it was determined that if her renal function was to return back to baseline should be able to go back home as per her wishes as well as the 's. At the time of discharge, her renal function was within normal limits, 1.11 mg/dL. She no longer had pain. was educated about appropriate measures to take at home including straining the urine and collect the stone for pathology that was to be sent by either her primary care physician or the urologist. He was also instructed to ensure that she had adequate oral intake. He was instructed if she was unable to tolerate an oral diet for him to come back to the emergency room department. Patient as well as the were in agreement with this plan. Urology was also in agreement with patient letting the patient go home if her renal function was within normal limits. Of note, she also had normocytic anemia she was asked to follow-up with her primary care physician for further work-up. of note, educated on how to strain urine, and provide equipment. Home health arranged for him as well. DISCHARGE MEDICATIONS: Please see below. ALLERGIES: Please see below. PHYSICAL EXAMINATION ON DISCHARGE: VITAL SIGNS: Please see below. General: Lying in bed, no acute distress Head/Neck/Throat: Trachea midline, mucous membranes moist Eyes: Sclera anicteric, PERRLA Thorax: Normal respiratory effort on room air, lungs clear to auscultation bilaterally, no wheezes/rales/rhonchi Cardiovascular: Normal rate, regular rhythm, normal S1, S2; no S3, S4, rubs/gallops/murmurs Abdomen: Bowel sounds present, soft/nontender/nondistended Genitourinary: No CVA tenderness, no Eason in place Musculoskeletal: Moving all extremities, no edema Skin: Warm, dry LABORATORY DATA: Please see below. IMAGING: CT ABD & PELVIS W/O CONTRAST FINDINGS: Respiratory motion artifact obscures the lung bases. There are no pleural or pericardial effusions. There is moderate left-sided hydronephrosis and hydroureter with perinephric and Tiffani ureteral stranding. In the region of the left ureterovesical junction there is a 5 mm size calcification causing the aforementioned findings. There is a hiatal hernia status quo. The liver, spleen, pancreas, and adrenal glands are seen in limited fashion but essentially unchanged from the prior exam. There is a 3 mm size nonobstructing right nephrolith representing a change from the prior exam. There is calcific atherosclerotic change in the abdominal aorta. There are no other gross abnormalities. There is no evidence of free fluid or free air. There is no significant change in appearance of the bowel loops or the mesenteries. There is sigmoid colon diverticulosis. Bone window technique throughout the exam shows no evidence of an acute osseous abnormality. IMPRESSION: Left-sided obstructive uropathy secondary to a 5 mm sized calculus in the ureterovesical junction as described above. PROGNOSIS: Good ACTIVITY: As tolerated ITEMS TO FOLLOWUP ON ON OUTPATIENT: 1. Follow-up with primary care physician as well as urologist DISCHARGE CONDITION: Stable TIME SPENT ON DISCHARGE: 25 minutes. Vital Signs/I&Os Vital Signs Date Time Temp Pulse Resp B/P (MAP) Pulse Ox O2 Delivery O2 Flow Rate FiO2 04/04/21 06:00 97.9 78 18 137/70 (92) 95 Room Air I&O- Last 24 Hours up to 6 AM 04/04/21 05:59 Intake Total 1590 ml Output Total 575 ml Balance 1015 ml Laboratory Data Labs 24H Laboratory Tests 2 04/04/21 05:28: Anion Gap 8, Glomerular Filtration Rate 49.7, Calcium Level 8.3L, Phosphorus Level 3.1, Magnesium Level 2.1 04/04/21 05:29: Nucleated Red Blood Cells % (auto) 0.0 CBC/BMP Laboratory Tests 04/04/21 05:28 04/04/21 05:29 Discharge Medications Scheduled Cholecalciferol (Vitamin D3) (Vitamin D3) 125 Mcg Capsule, 125 MCG PO DAILY, (Reported) Cyanocobalamin (Vitamin B-12) (Vitamin B-12) 2,000 Mcg Tablet.er, 2,000 MCG PO DAILY, (Reported) Famotidine (Famotidine) 20 Mg Tablet, 20 MG PO BID, (Reported) Fluoxetine Hcl (Fluoxetine HCl) 10 Mg Capsule, 10 MG PO BID, (Reported) Memantine HCl (Memantine HCl) 10 Mg Tablet, 10 MG PO BID, (Reported) Multivitamins (Thera M Plus Tablet) 1 Each Tablet, 1 TAB PO DAILY, (Reported) Oxcarbazepine (Oxcarbazepine) 150 Mg Tablet, 150 MG PO BID, (Reported) Pregabalin (Lyrica) 100 Mg Capsule, 100 MG PO BID, (Reported) Tamsulosin HCl (Flomax) 0.4 Mg Capsule, 0.4 MG PO DAILY Scheduled PRN Acetaminophen (Tylenol) 325 Mg Capsule, 325 MG PO for PAIN LEVEL 1-4, (Reported) Ondansetron HCl (Zofran) 4 Mg Tablet, 4 MG PO Q6-8HP PRN for nausea/vomiting Allergies Coded Allergies: Sulfa (Sulfonamide Antibiotics) (Verified Allergy, Unknown, 01/07/19) lansoprazole (Verified Allergy, Unknown, 01/07/19) latex (Verified Allergy, Unknown, 01/07/19) aspirin (Verified Adverse Reaction, Unknown, weak, 02/22/19) codeine (Verified Adverse Reaction, Unknown, 01/07/19) ZAC Yadav M.D. Apr 04, 2021 13:49
== END 2021-04-04 14:22 | disposition home or self-care (01) ==
LOC: M ED 10:23 → M ED INP 10:24 → ENRESERV 16:29 → M MSPAV 18:41
PROVIDERS: ADMIT Internal Medicine; ATTEND Internal Medicine
DX: N13.2 Hydronephrosis with renal and ureteral calculous obstruction (principal); N17.9 Acute kidney failure, unspecified; G43.909 Migraine, unspecified, not intractable, without status migrainosus; G30.9 Alzheimer's disease, unspecified; F03.90 Unspecified dementia, unspecified severity, without behavioral disturbance, psychotic disturbance, mood disturbance, and anxiety; K44.9 Diaphragmatic hernia without obstruction or gangrene; Z79.899 Other long term (current) drug therapy; Z88.2 Allergy status to sulfonamides; Z91.040 Latex allergy status; Z88.5 Allergy status to narcotic agent; Z88.8 Allergy status to other drugs, medicaments and biological substances
CPT/HCPCS: 36415; 71045; 74018; 74176; 80048; 81001; 83735; 84100; 84484; 85025; 85027; 87631; 93005; 93041; 94760; 96361; 96372; 96374; 96375; 99285; G0378; J1644; J1885; J2405

== ENCOUNTER → 2021-05-13 | Outpatient (CLI) | payer MEDICARE, OTHER ==
[~2021-05-13] MED LIST changes: +ACET325C5 PO; +CHOL50002 PO; +FAMO1TAB11 PO; +FLOM0.4C39 PO; +VITMTA PO; +ZOFR4TAB16 PO; +[UNRECOGNIZED DRUG - OTHER] PO
--- NOTE | 2021-05-13 11:07 | REP ---
INDICATION: LT URETRAL STONE. COMPARISON: No prior ultrasounds for comparison TECHNIQUE: Real-time sonographic evaluation of the kidneys with Doppler FINDINGS: Multiple ultrasonographic images of the right kidney show the right kidney to measure 9.3 x 3.9 x 3.7 cm. The renal cortical echotexture is unremarkable. There are no masses. There is good corticomedullary differentiation. There is no hydronephrosis. There are no perinephric fluid collections. Multiple ultrasonographic images of the left kidney show the left kidney to measure 11 x 3.6 x 3.8 cm. The renal cortical echotexture is unremarkable. There are no masses. There is good corticomedullary differentiation. There is no hydronephrosis. There are no perinephric fluid collections. IMPRESSION: Unremarkable renal ultrasonography. <Electronically signed by Nelson Dela Cruz > 05/13/21 [id number]
== END ==
LOC: M RAD 10:30
PROVIDERS: ATTEND Urology
DX: Z87.442 Personal history of urinary calculi (principal)

== ENCOUNTER → 2021-06-18 | Outpatient (CLI) | payer MEDICARE, OTHER ==
[~2021-06-18] MED LIST changes: -FLUO10CA16 PO; +FLUO10CA18 PO
== END ==
LOC: M WUC 09:16
PROVIDERS: ATTEND Internal Medicine
DX: M54.9 Dorsalgia, unspecified (principal); M47.817 Spondylosis without myelopathy or radiculopathy, lumbosacral region; M85.88 Other specified disorders of bone density and structure, other site

== ENCOUNTER → 2021-10-01 | Outpatient (CLI) | payer MEDICARE, OTHER | LOC: M WUC 13:45 | PROVIDERS: ATTEND Internal Medicine | DX: M79.642 Pain in left hand (principal); M54.9 Dorsalgia, unspecified; M19.042 Primary osteoarthritis, left hand; M47.816 Spondylosis without myelopathy or radiculopathy, lumbar region; M85.88 Other specified disorders of bone density and structure, other site ==

== ENCOUNTER 2022-01-28 14:16 | Emergency (ER) | payer MEDICARE, OTHER ==
[~2022-01-28] VITALS: Ht 162.6 cm; Wt 58.0 kg
[2022-01-28] MEDS ORDERED: BOOSTRIX/ADACEL VACCINE (DIPHTH/PERTUSS/ACELL/TETANUS) 0.5ML SYR IM.IMMUN ONE (16:00)
[2022-01-28] MEDS ORDERED: ACETAMINOPHEN 325 MG TAB PO ONE (16:05)
[2022-01-28 16:36] VITALS: O2SAT 98
[2022-01-28] MEDS ORDERED: NS 500 ML IV ONE (17:15)
[2022-01-28 17:33] LABS: BASO # 0.1 10^3/uL (0.0-0.2); BASO % 0.5 % (0.0-1.0); EOS # 0.2 10^3/uL (0.0-0.5); EOS % 2.4 % (0.0-3.0); HEMATOCRIT 33.3 % (36.0-47.0); LYMPH # 2.7 10^3/uL (1.5-5.0); LYMPH % 29.1 % (24.0-44.0); MEAN CORPUSCULAR HEMOGLOBIN 31.5 pg (27.0-33.0); MEAN CORPUSCULAR VOLUME 95.4 fl (80.0-96.0); MONO # 0.7 10^3/uL (0.0-0.8); MONO % 7.3 % (2.0-8.0); NEUTROPHILS # 5.6 10^3/uL (1.5-8.5); NEUTROPHILS % 60.4 % (36.0-66.0); PLATELET COUNT, AUTOMATED 274 10^3/uL (150-450); RED BLOOD COUNT 3.49 10^6/uL (4.00-5.40); WHITE BLOOD COUNT 9.2 10^3/uL (4.0-10.0)
[2022-01-28 17:44] LABS: INR 1.09; PROTHROMBIN TIME 14.5 SECONDS (12.7-14.5)
[2022-01-28 17:58] LABS: ALBUMIN 3.4 GM/DL (3.2-5.2); BILIRUBIN,DIRECT 0.1 MG/DL (0.0-0.2); BILIRUBIN,TOTAL 0.4 MG/DL (0.2-1.0); TOTAL PROTEIN 7.2 GM/DL (6.4-8.2)
[2022-01-28 18:02] LABS: MB/CK RELATIVE INDEX 1.72 (< OR =4)
[2022-01-28 18:10] LABS: RSV AMPLIFICATION NEGATIVE (NEGATIVE)
[2022-01-28] MEDS ORDERED: ISOVUE-370 76% 100ML VIAL As Ordered ONE (18:16)
[2022-01-28 20:49] LABS: MB/CK RELATIVE INDEX 1.37 (< OR =4)
[2022-01-28] MEDS ORDERED: MIDAZOLAM INJ 2MG/2ML VIAL (J2250 PER 1MG) IV ONE (21:20)
[2022-01-28 22:30] VITALS: BP 161/72
[2022-02-01] MEDS ORDERED: TRAM50TA2 (11:05)
[2022-02-01] MEDS ORDERED: QUET1TAB17 (11:05)
== END 2022-01-28 23:05 | disposition home or self-care (01) ==
LOC: M ED 14:16 → EDBD 14:16 → M ED 23:05
DX: S01.01XA Laceration without foreign body of scalp, initial encounter (principal); S22.089A Unspecified fracture of T11-T12 vertebra, initial encounter for closed fracture; W19.XXXA Unspecified fall, initial encounter; Y92.099 Unspecified place in other non-institutional residence as the place of occurrence of the external cause; R91.8 Other nonspecific abnormal finding of lung field; K44.9 Diaphragmatic hernia without obstruction or gangrene; R93.2 Abnormal findings on diagnostic imaging of liver and biliary tract; N20.0 Calculus of kidney; K57.30 Diverticulosis of large intestine without perforation or abscess without bleeding; M48.061 Spinal stenosis, lumbar region without neurogenic claudication; M85.9 Disorder of bone density and structure, unspecified; M47.812 Spondylosis without myelopathy or radiculopathy, cervical region; Z79.899 Other long term (current) drug therapy; Z88.2 Allergy status to sulfonamides; Z88.8 Allergy status to other drugs, medicaments and biological substances; Z88.5 Allergy status to narcotic agent; Z91.040 Latex allergy status
CPT/HCPCS: 12013; 70450; 70486; 71260; 72125; 74177; 80047; 80076; 81001; 82550; 82553; 83605; 83690; 84484; 85025; 85610; 85730; 87631; 90471; 90715; 93041; 96375; 99284; J2250; Q9967

== ENCOUNTER 2022-03-18 16:13 | Inpatient (IN) | payer MEDICARE, OTHER ==
[~2022-03-18] VITALS: Ht 157.5 cm; Wt 53.6 kg
[~2022-03-18 16:13] MED LIST changes: +QUET1TAB17 PO; +TRAM50TA2 PO
[2022-03-18 20:52] LABS: BASO % 0.5 % (0.0-1.0); EOS % 0.3 % (0.0-3.0); HEMATOCRIT 31.6 % (36.0-47.0); HEMOGLOBIN 10.9 g/dl (12.0-15.5); LYMPH # 1.7 10^3/uL (1.5-5.0); MEAN CORPUSCULAR HEMOGLOBIN 32.2 pg (27.0-33.0); MEAN CORPUSCULAR HGB CONC 34.5 g/dl (32.0-36.5); MEAN CORPUSCULAR VOLUME 93.5 fl (80.0-96.0); MONO # 0.5 10^3/uL (0.0-0.8); MONO % 7.9 % (2.0-8.0); NEUTROPHILS # 4.1 10^3/uL (1.5-8.5); PLATELET COUNT, AUTOMATED 321 10^3/uL (150-450); RED BLOOD COUNT 3.38 10^6/uL (4.00-5.40); WHITE BLOOD COUNT 6.5 10^3/uL (4.0-10.0)
[2022-03-18 21:02] LABS: APPEARANCE, URINE MANUAL CLEAR (CLEAR); COLOR, URINE MANUAL LT YELLOW (YELLOW)
[2022-03-18 21:03] LABS: BILIRUBIN, URINE MANUAL NEGATIVE (NEGATIVE); BLOOD URINE MANUAL NEGATIVE (NEGATIVE); GLUCOSE, URINE (UA) MANUAL NEGATIVE (NEGATIVE); KETONE, URINE MANUAL 1+ mg/dL (NEGATIVE); LEUKOCYTE ESTERASE, URINE MAN NEGATIVE (NEGATIVE); NITRITE, URINE MANUAL NEGATIVE (NEGATIVE); PH,URINE MAN 7.5 UNITS (5.0 - 7.0); PROTEIN, URINE MANUAL NEGATIVE (NEGATIVE); SPECIFIC GRAVITY,URINE MANUAL 1.005 (1.002-1.035); UROBILINOGEN, URINE MANUAL NORMAL (NORMAL)
[2022-03-18 21:37] LABS: ALBUMIN 3.4 GM/DL (3.2-5.2); ALT/SGPT 14 U/L (12-78); BILIRUBIN,DIRECT < 0.1 MG/DL (0.0-0.2); BILIRUBIN,TOTAL 0.7 MG/DL (0.2-1.0); BLOOD UREA NITROGEN 15 MG/DL (7-18); CALCIUM LEVEL 9.5 MG/DL (8.8-10.2); CARBON DIOXIDE LEVEL 22 MEQ/L (21-32); CHLORIDE LEVEL 103 MEQ/L (98-107); CREATININE FOR GFR 1.01 MG/DL (0.55-1.30); GLOMERULAR FILTRATION RATE 55.3 (>32); GLUCOSE, FASTING 111 MG/DL (70-100); LIPASE 106 U/L (73-393); POTASSIUM SERUM 5.4 MEQ/L (3.5-5.1); SODIUM LEVEL 132 MEQ/L (136-145); TOTAL PROTEIN 7.6 GM/DL (6.4-8.2)
[2022-03-18] MEDS ORDERED: ONDANSETRON 4MG 2ML VIAL IV ONE (22:45)
[2022-03-18] MEDS ORDERED: QUEtiapine FUMARATE 12.5 MG HALF-TAB PO ONE (22:45)
[2022-03-19] MEDS ORDERED: ONDA4TAB6 SL (01:24)
[2022-03-19] MEDS ORDERED: VITA100093 PO (01:24)
[2022-03-19] MEDS ORDERED: HOME MED LIST COMPLETE! XX SCH (01:25)
[2022-03-19] MEDS ORDERED: MOM 30ML SUSPENSION UDC PO PRN (01:30)
[2022-03-19] MEDS: NS 1,000 ML IV SCH ×2 (01:30→15:54)
[2022-03-19] MEDS ORDERED: ACETAMINOPHEN TAB 650MG DOSE (2X325MG) PO PRN (01:30)
[2022-03-19] MEDS ORDERED: traMADol 50 MG TAB PO PRN (01:40)
[2022-03-19] MEDS: HEPARIN SOD (PORCINE) 5000UNITS/ML 1ML VIAL/SYRINGE SC SCH ×3 (05:36→22:12)
[2022-03-19 07:54] LABS: BASO % 0.4 % (0.0-1.0); EOS # 0.1 10^3/uL (0.0-0.5); HEMATOCRIT 29.8 % (36.0-47.0); HEMOGLOBIN 9.9 g/dl (12.0-15.5); LYMPH # 2.1 10^3/uL (1.5-5.0); LYMPH % 29.9 % (24.0-44.0); MEAN CORPUSCULAR HEMOGLOBIN 31.3 pg (27.0-33.0); MEAN CORPUSCULAR HGB CONC 33.2 g/dl (32.0-36.5); MEAN CORPUSCULAR VOLUME 94.3 fl (80.0-96.0); MONO # 0.7 10^3/uL (0.0-0.8); MONO % 9.7 % (2.0-8.0); NEUTROPHILS # 4.2 10^3/uL (1.5-8.5); NEUTROPHILS % 58.7 % (36.0-66.0); PLATELET COUNT, AUTOMATED 290 10^3/uL (150-450); RED BLOOD COUNT 3.16 10^6/uL (4.00-5.40); WHITE BLOOD COUNT 7.1 10^3/uL (4.0-10.0)
[2022-03-19 08:15] LABS: ALBUMIN 3.3 GM/DL (3.2-5.2); BILIRUBIN,TOTAL 0.6 MG/DL (0.2-1.0); CALCIUM LEVEL 9.3 MG/DL (8.8-10.2); CREATININE FOR GFR 0.96 MG/DL (0.55-1.30); GLOMERULAR FILTRATION RATE 58.7 (>32); POTASSIUM SERUM 3.8 MEQ/L (3.5-5.1); TOTAL PROTEIN 6.9 GM/DL (6.4-8.2)
[2022-03-19] MEDS: OXcarbazepine 150 MG TAB PO SCH ×2 (09:24→22:12)
[2022-03-19] MEDS: PREGABALIN 100 MG CAP (LYRICA) PO SCH ×2 (09:24→22:10)
[2022-03-19] MEDS: FLUoxetine 10 MG CAP PO SCH ×2 (09:24→22:10)
[2022-03-19] MEDS: DOCUSATE SODIUM 100MG CAPSULE PO SCH ×2 (09:24→22:10)
[2022-03-19] MEDS: MEMANTINE 5MG TABLET (NAMENDA) PO SCH ×2 (09:52→22:10)
[2022-03-19] MEDS: QUEtiapine FUMARATE 12.5 MG HALF-TAB PO SCH ×2 (09:52→22:11)
[2022-03-19 14:47] VITALS: BP 140/85
[2022-03-19 15:13] LABS: CALCIUM LEVEL 8.9 MG/DL (8.8-10.2); CREATININE FOR GFR 0.96 MG/DL (0.55-1.30); GLOMERULAR FILTRATION RATE 58.7 (>32); POTASSIUM SERUM 3.9 MEQ/L (3.5-5.1)
[2022-03-19 20:22] VITALS: BP 150/74
[2022-03-20] MEDS: HEPARIN SOD (PORCINE) 5000UNITS/ML 1ML VIAL/SYRINGE SC SCH ×2 (05:52→14:00)
[2022-03-20 05:53] VITALS: BP 146/78
[2022-03-20 07:09] LABS: BASO % 0.5 % (0.0-1.0); EOS # 0.2 10^3/uL (0.0-0.5); EOS % 4.1 % (0.0-3.0); HEMATOCRIT 30.8 % (36.0-47.0); HEMOGLOBIN 9.7 g/dl (12.0-15.5); LYMPH # 2.5 10^3/uL (1.5-5.0); LYMPH % 42.1 % (24.0-44.0); MEAN CORPUSCULAR HEMOGLOBIN 30.9 pg (27.0-33.0); MEAN CORPUSCULAR HGB CONC 31.5 g/dl (32.0-36.5); MEAN CORPUSCULAR VOLUME 98.1 fl (80.0-96.0); MONO # 0.6 10^3/uL (0.0-0.8); MONO % 10.4 % (2.0-8.0); NEUTROPHILS # 2.5 10^3/uL (1.5-8.5); NEUTROPHILS % 42.7 % (36.0-66.0); PLATELET COUNT, AUTOMATED 261 10^3/uL (150-450); RED BLOOD COUNT 3.14 10^6/uL (4.00-5.40); WHITE BLOOD COUNT 5.9 10^3/uL (4.0-10.0)
[2022-03-20] MEDS: NS 1,000 ML IV SCH (07:19)
[2022-03-20 08:03] LABS: ALT/SGPT 13 U/L (12-78); BILIRUBIN,TOTAL 0.3 MG/DL (0.2-1.0); BLOOD UREA NITROGEN 12 MG/DL (7-18); CALCIUM LEVEL 8.6 MG/DL (8.8-10.2); CARBON DIOXIDE LEVEL 24 MEQ/L (21-32); CHLORIDE LEVEL 111 MEQ/L (98-107); GLOMERULAR FILTRATION RATE > 60.0 (>32); GLUCOSE, FASTING 76 MG/DL (70-100); POTASSIUM SERUM 3.6 MEQ/L (3.5-5.1); SODIUM LEVEL 140 MEQ/L (136-145); TOTAL PROTEIN 6.3 GM/DL (6.4-8.2)
[2022-03-20] MEDS: MEMANTINE 5MG TABLET (NAMENDA) PO SCH (09:51)
[2022-03-20] MEDS: DOCUSATE SODIUM 100MG CAPSULE PO SCH (09:51)
[2022-03-20] MEDS: FLUoxetine 10 MG CAP PO SCH (09:52)
[2022-03-20] MEDS: PREGABALIN 100 MG CAP (LYRICA) PO SCH (09:52)
[2022-03-20] MEDS: QUEtiapine FUMARATE 12.5 MG HALF-TAB PO SCH (09:52)
[2022-03-20] MEDS: OXcarbazepine 150 MG TAB PO SCH (09:52)
[2022-03-20 14:00] VITALS: BP 155/86
== END 2022-03-20 16:00 | disposition home or self-care (01) | DRG 392 ==
LOC: M ED 16:13 → M ED INP 03-19 01:28 → M MSPAV 03-19 14:45
PROVIDERS: ADMIT Family Medicine; ATTEND Family Medicine
DX: A08.4 Viral intestinal infection, unspecified (principal); E87.2 Acidosis; E87.5 Hyperkalemia; E86.0 Dehydration; F03.90 Unspecified dementia, unspecified severity, without behavioral disturbance, psychotic disturbance, mood disturbance, and anxiety; Z90.49 Acquired absence of other specified parts of digestive tract; Z90.79 Acquired absence of other genital organ(s); Z79.899 Other long term (current) drug therapy; Z20.822 Contact with and (suspected) exposure to COVID-19; Z88.2 Allergy status to sulfonamides; Z88.5 Allergy status to narcotic agent; Z88.6 Allergy status to analgesic agent; Z88.8 Allergy status to other drugs, medicaments and biological substances; Z91.040 Latex allergy status

== ENCOUNTER → 2022-06-07 | Outpatient (CLI) | payer MEDICARE, OTHER ==
[~2022-06-07] MED LIST changes: +E-Z-GAS II EFFERVESCENT PACKET (SODIUM BICARB./CITRIC ACID/SIMETHICONE) As Ordered ONE; +E-Z-HD 98% w/w 340GM SUSP BTL As Ordered ONE; +E-Z-PAQUE 96% w/w SUSP 176GM BTL As Ordered ONE; +ONDA4TAB6 SL; +VITA100093 PO
== END ==
LOC: M RAD 09:46
PROVIDERS: ATTEND Family Medicine
DX: K44.9 Diaphragmatic hernia without obstruction or gangrene (principal); R07.89 Other chest pain; K21.9 Gastro-esophageal reflux disease without esophagitis

== ENCOUNTER → 2022-09-14 | Outpatient (REF) | payer MEDICARE, OTHER ==
[~2022-09-14] MED LIST changes: -E-Z-GAS II EFFERVESCENT PACKET (SODIUM BICARB./CITRIC ACID/SIMETHICONE) As Ordered ONE; -E-Z-HD 98% w/w 340GM SUSP BTL As Ordered ONE; -E-Z-PAQUE 96% w/w SUSP 176GM BTL As Ordered ONE
== END ==
LOC: M PLALAB 10:44
PROVIDERS: ATTEND Nurse Practitioner Family
DX: R10.2 Pelvic and perineal pain (principal)

== ENCOUNTER → 2022-09-16 | Outpatient (REF) | payer MEDICARE, OTHER ==
[2022-09-16 17:16] LABS: HEMATOCRIT 33.3 % (36.0-47.0); HEMOGLOBIN 10.3 g/dl (12.0-15.5); MEAN CORPUSCULAR HEMOGLOBIN 30.3 pg (27.0-33.0); MEAN CORPUSCULAR HGB CONC 30.9 g/dl (32.0-36.5); MEAN CORPUSCULAR VOLUME 97.9 fl (80.0-96.0); PLATELET COUNT, AUTOMATED 305 10^3/uL (150-450)
[2022-09-16 17:50] LABS: PERCENT SATURATION 11.5 % (13.2-45.0)
[2022-09-16 18:25] LABS: ALBUMIN 3.6 G/DL (3.2-5.2); BILIRUBIN,TOTAL 0.3 MG/DL (0.3-1.2); CALCIUM LEVEL 9.4 MG/DL (8.3-10.6); CREATININE FOR GFR 1.02 MG/DL (0.55-1.30); FERRITIN 28.7 NG/ML (7.3-270.7); GLOMERULAR FILTRATION RATE 54.7 (>32); POTASSIUM SERUM 4.2 MMOL/L (3.5-5.1); TOTAL PROTEIN 7.3 G/DL (5.7-8.2)
== END ==
LOC: M LABWUC 16:40
PROVIDERS: ATTEND Internal Medicine
DX: D64.9 Anemia, unspecified (principal)